=== PATIENT | female | born 1985 | race Caucasian/White ===

== ENCOUNTER 2020-10-09 20:36 | Emergency (ER) | payer BC, SELFPAY ==
[2020-10-09 20:37] VITALS: BP 125/77; PULSE 118; RESP 18; TEMP 37; O2SAT 99; BMI 25.7
[2020-10-09 20:39] VITALS: BP 125/77; PULSE 118; RESP 18; TEMP 37; O2SAT 99
[2020-10-09 22:37] VITALS: PULSE 111
[2020-10-09 22:39] VITALS: BP 130/77; PULSE 111; RESP 16; TEMP 37.1; O2SAT 98
--- NOTE | 2020-10-09 22:45 | EX.ED.DYSGE1 ---
HPI History of Present Illness Chief Complaint: Cold Sx Informant: patient Narrative Narrative: Sent from urgent care for evaluation. Reports fever started 2 PM today. Mild cough. Loose stools about 4 hours ago. Reports that he EKG the chest x-ray and sent to the ED. EKG reviewed with sinus tachycardia rate of 137. Denies lightheaded symptoms. Denies vomiting. Denies urinary symptoms. Denies recent travel, surgeries, or immobilizations. No history of PE or DVT. Patient has been Covid vaccinated. No Covid infections in the past. Takes medications for rosacea. [facility] Medical History Rosacea Home Medications doxycycline monohydrate [Oracea] 40 mg PO DAILY 10/09/20 [History Last Taken Unknown] Allergy/AdvReac Type Severity Reaction Status Date / Time No Known Allergies Allergy Verified 10/09/20 20:40 Surgical History History of removal of cyst Social History Smoking Status: Never smoker ROS ROS ED Constitutional Constitutional ED: Reports fever(s); Denies chills or sweats Eyes Eyes: Denies change in vision ENT ENT ED: Denies dysphagia or sore throat Cardiovascular Cardiovascular: Denies chest pain, leg edema, palpitations or racing heartbeat Respiratory/Chest Respiratory/Chest: Reports cough; Denies dyspnea or dyspnea on exertion Gastrointestinal Gastrointestinal: Reports diarrhea; Denies abdominal pain, nausea or vomiting Genitourinary Genitourinary ED: Denies dysuria, hematuria or urinary frequency Musculoskeletal Musculoskeletal: Denies back pain, extremity pain or neck pain Integumentary Denies rash or wounds Neurologic Neurologic: Denies headache(s), paresthesias or weakness EXAM Physical Exam Const Vital Signs: 10/09/20 20:37 10/09/20 20:39 10/09/20 21:31 Temperature 98.6 F 98.6 F Temperature Source Temporal Temporal Pulse Rate 118 H 118 H Respiratory Rate 18 18 Respiratory Effort Normal Non-Labored Respiratory Pattern Normal Blood Pressure 125/77 H 125/77 H Blood Pressure Mean 93 93 Pulse Ox 99 99 Oxygen Delivery Method Room Air Room Air 10/09/20 22:37 10/09/20 22:39 10/10/20 00:00 Temperature 98.7 F 98.6 F Temperature Source Temporal Temporal Pulse Rate 111 H 111 H 110 H Respiratory Rate 16 19 H Respiratory Effort Respiratory Pattern Blood Pressure 130/77 H 119/74 Blood Pressure Mean 94 89 Pulse Ox 98 98 Oxygen Delivery Method Room Air Room Air Positive well nourished and well developed General Appearance ED: well developed and NAD HEENT Reports moist mucous membranes normocephalic and atraumatic Eyes PERRL, EOMs intact bilaterally and conjunctivae normal General Eye ED: Yes normal appearance of both eyes Neck no lymphadenopathy and supple General: Negative for tenderness Chest Wall Chest: Negative for tenderness Resp normal respiratory effort and normal air movement Effort and Inspection: symmetric chest movement; Negative for respiratory distress Cardio regular rhythm and no murmurs Cardio Narrative: Tachycardic Peripheral Pulses: pulses 2+ throughout GI normal to inspection, nondistended, normoactive bowel sounds and non-tender Palpation: Negative for guarding or rebound tenderness present Back/Spine no CVA tenderness and no thoracic nor lumbar tenderness Extremity normal to inspection General Extremety ED: Negative for edema or tenderness General Extremity: Negative for edema Neuro oriented x3 and no sensory deficits noted Sensorium / Orientation: awake and alert Skin no rashes or lesions noted and no wounds MDM MDM MDM Narrative Medical decision making narrative: Patient is tachycardic exam. Reviewing urgent care his EKG presumed concerns of her tachycardia on EKG at 130s. She was 118 on arrival. With her reported fever myalgias diarrhea Covid testing obtained returned negative. Could not open her chest x-ray if from this therefore chest x-ray obtained which was negative. Urine negative for infection. Normal creatinine. After liter of fluids and heart rate still 110s. Discussed with patient if she would want more IV fluid she declines at this time. I discussed viral syndrome with the patient with symptoms to starting today with her fever. Discussed potential false negative Covid testing with onset less than 24 hours. She denies any respiratory complaints for concerns for PE. I discussed with patient continuing oral hydration Tylenol Motrin as needed monitor for worsening symptoms and return precautions. All questions were answered. Lab Data Attestation: I reviewed the patient's lab results. Labs: Laboratory Results - last 24 hr 10/10/20 10/10/20 10/10/20 00:00 00:00 00:20 WBC 14.3 H RBC 4.14 L Hgb 11.9 L Hct 36.8 L MCV 88.9 MCH 28.7 MCHC 32.3 RDW Std Deviation 46.4 H RDW Coeff of [place] 14.4 Plt Count 342 MPV 11.0 Immature Gran % (Auto) 0.500 Neut % (Auto) 70.3 H Lymph % (Auto) 18.0 L [place] % (Auto) 10.3 H Eos % (Auto) 0.6 Baso % (Auto) 0.3 Absolute Neuts (auto) 10.1 H Absolute Lymphs (auto) 2.57 Nucleated RBC % 0 Sodium TNP Potassium TNP Chloride TNP Carbon Dioxide TNP Anion Gap TNP BUN TNP Creatinine 0.64 Estim Creat Clear Calc 103.93 Est GFR (MDRD) Af Amer 135 Est GFR (MDRD) Non-Af 111 BUN/Creatinine Ratio TNP Glucose 86 Calcium TNP Urine Color Yellow Urine Clarity Clear Urine pH 8.0 Ur Specific [place] 1.010 Urine Protein Negative Urine Glucose (UA) Normal Urine Ketones 150 A* Urine Occult Blood 25 H Urine Nitrite Negative Urine Bilirubin Negative Urine Urobilinogen Normal Ur Leukocyte Esterase Negative Urine RBC 0-5 SEEN Urine WBC 0 SEEN Ur Squamous Epith Cells 0-5 SEEN Amorphous Sediment 1+ Urine Bacteria RARE Urine Mucus 0 SEEN Urine Test Negative Radiography Chest X-Ray - ED: 1 View, Read by ED Physician, Read by Radiologist and No Acute Disease Diagnostic Testing: Radiology Impression Chest X-Ray 10/09/20 22:50 IMPRESSION: Normal x-ray examination of the chest. Electronically Signed: Mathew Juarez DO at 23:40 EDT Tel , Service support , Discharge Plan Triage Chief Complaint: Cold Sx ED Provider: Aldo Rashid Dx/Rx/DC Orders Clinical Impression: Viral infection Instructions: ED URI, Viral, No Abx (Adult) Prescriptions: No Action doxycycline monohydrate [Oracea] 40 mg capsule,IR - delay rel,biphase 40 mg PO DAILY RF: 0 Stand Alone Forms: ED Work / School Excuse Primary Care Provider: Care Physician,No Primary Referrals: Care Physician,No Primary [Primary Care Provider] - Activity Restrictions/Additional Instructions: Chest x-ray urine Covid testing negative for infection. Continue Tylenol Motrin as needed. Return if any worsening symptoms. Disposition Disposition: Home, Self Care
--- NOTE | 2020-10-09 22:50 | RAD_ITS ---
STUDY: X-RAY CHEST REASON FOR EXAM: Female, 35 years old. cough TECHNIQUE: Single AP portable view of the chest. COMPARISON: None. FINDINGS: The lungs are clear and expanded. There is no demonstrated pleural abnormality. Normal size heart. Normal mediastinum and km. Normal visualized pulmonary arteries. Normal visualized aortic arch and descending thoracic aorta. Normal visualized thoracic spine. Normal visualized ribs, clavicles, and shoulders. There is no demonstrated abnormality of the visualized soft tissue structures of the upper abdomen. RAD/Chest 1 View (Portable) IMPRESSION: Normal x-ray examination of the chest. Electronically Signed: Mathew Juarez DO at 23:40 EDT Tel , Service support ,
[2020-10-09] MEDS: 0.9% Normal Saline 1,000 ML 1000 ML IV (23:15)
[2020-10-10] VITALS: BP 119/74; PULSE 110; RESP 19; TEMP 37; O2SAT 98
[2020-10-10 00:13] LABS: Absolute Lymphocyte Count 2.57 X10^3/uL (0.83-4.51); Absolute Neutrophil Count 10.1 X10^3/uL (2.0-7.7); Basophil# 0.04 X10^3/uL; Basophil% 0.3 % (0-1); Eosinophil# 0.08 X10^3/uL; Eosinophils% 0.6 % (0-5); Hematocrit 36.8 % (37-47); Hemoglobin 11.9 g/dL (12.0-15.0); Lymphocyte # 2.57 X10^3/ul (0.83-4.51); Mean Corp Hgb Conc 32.3 g/dL (32-36); Mean Corpuscular Hgb 28.7 pg (27.0-32.0); Mean Corpuscular Volume 88.9 fL (81-99); Monocyte# 1.47 X10^3/uL; Monocyte% 10.3 % (0-10); NRBC Flagged by Analyzer 0 % (0-5); Neutrophil # 10.06 X10^3/uL (2.7-7.7); Neutrophil % 70.3 % (47-70); Platelet Count 342 K/mm3 (150-450); RBC Distribution Width CV 14.4 % (11.6-14.6); RBC Distribution Width SD 46.4 fl (35.1-43.9); Red Blood Count 4.14 M/mm3 (4.2-5.4); White Blood Count 14.3 K/mm3 (4.4-11.0)
[2020-10-10 00:25] LABS: Mucous, Urine 0 SEEN /hpf (<or=2+); White Blood Cells 0 SEEN /hpf (0-5)
[2020-10-10 00:26] LABS: Color, Urine Yellow (Yellow); Glucose, Dipstick Normal (Normal); Leukocyte Esterase-Dipstick Negative /ul (Negative); Nitrite-Dipstick Negative (Negative); Occult Blood-Urine 25 /ul (Negative); Protein-Dipstick Negative (Negative); Urine Bilirubin Dipstick Negative (Negative); Urine Clarity Clear (Clear); Urine Urobilinogen Normal (Normal)
[2020-10-10 00:32] LABS: Ketone-Dipstick 150 mg/dl (Negative)
[2020-10-10 00:33] LABS: Red Blood Cells-Urine 0-5 SEEN /hpf (0-5)
[2020-10-10 00:34] LABS: Amorphous Sediment 1+; Bacteria RARE /hpf (None Seen); Squamous Epithelial Cells - UA 0-5 SEEN /hpf (5-10)
[2020-10-10 00:36] LABS: Internal QC Validated? YES +Cl - CLEAR BKGD; Pregnancy, Urine Negative Negative
[2020-10-10 00:46] LABS: Creatinine, Serum 0.64 mg/dL (0.55-1.02); EST Glomerular Filtration Rate 111 mL/min (>60); Est Glom Filt Rate - Afr Amer 135 mL/min (>60); Estimated Creatinine Clearance 103.93 ml/min; Glucose 86 mg/dL (74-106)
[2020-10-10 01:00] VITALS: BP 95/81; PULSE 116; RESP 17; TEMP 37; O2SAT 99
== END 2020-10-10 01:30 | disposition home or self-care (01) ==
PROVIDERS: Emergency Provider Emergency Medicine
DX: B34.9 Viral infection, unspecified (principal); Z20.822 Contact with and (suspected) exposure to COVID-19; R19.7 Diarrhea, unspecified; R05 Cough; R00.0 Tachycardia, unspecified
CPT/HCPCS: 36415; 71045; 80048; 81001; 81025; 85025; 87426; 96360; 99285; J7030; A4216

== ENCOUNTER → 2023-10-18 | Outpatient (CLI) | payer BC, SELFPAY ==
[2023-10-18 12:39] LABS: Cholesterol 182 mg/dL (200); High Density Lipoprotein 69 mg/dL; Triglycerides 39 mg/dL; Very Low Density Lipoprotein 8 mg/dL (5-40)
== END | disposition home or self-care (01) ==
LOC: MFPLAB 10:25
PROVIDERS: PCP Family Medicine; Visit Provider Family Medicine
DX: Z00.00 Encounter for general adult medical examination without abnormal findings (principal)
CPT/HCPCS: 36415; 80061